=== PATIENT | female | born 1945 | race Caucasian/White ===

== ENCOUNTER 2019-11-09 15:46 | Observation (INO) | payer BC ==
[~2019-11-09] VITALS: Ht 157.5 cm; Wt 70.1 kg
[2019-11-09 16:30] VITALS: BP 213/109
[2019-11-09 16:34] LABS: BASO % 1 % (0-3); EOS # 0.1 x10^3/uL (0.0-0.7); EOS % 1 % (0-3); HEMATOCRIT 40.9 % (36.0-47.0); HEMOGLOBIN 13.7 g/dL (12.0-15.5); LYMPH # 1.7 x10^3/uL (1.0-4.8); LYMPH % 22 % (24-48); MEAN CORPUSCULAR HEMOGLOBIN 31 pg (25-35); MEAN CORPUSCULAR HGB CONC 33 g/dL (31-37); MEAN CORPUSCULAR VOLUME 94 fL (79-100); MONO # 0.7 x10^3/uL (0.0-1.1); MONO % 9 % (0-9); NEUT # 5.3 x10^3uL (1.8-7.7); NEUT % 68 % (31-73); PLATELET COUNT 345 x10^3/uL (140-400); RED BLOOD COUNT 4.36 x10^6/uL (3.50-5.40); WHITE BLOOD COUNT 7.8 x10^3/uL (4.0-11.0)
[2019-11-09 16:50] LABS: CALCIUM 9.1 mg/dL (8.5-10.1); CREATININE 0.6 mg/dL (0.6-1.0); GFR 98.3; POTASSIUM 3.9 mmol/L (3.5-5.1); TOTAL BILIRUBIN 0.2 mg/dL (0.2-1.0); TOTAL PROTEIN 7.9 g/dL (6.4-8.2)
[2019-11-09] MEDS ORDERED: amLODIPine BESYLATE 5 MG TABLET PO ONE (17:00)
--- NOTE | 2019-11-09 17:22 | EKG ---
[address] [address] Test Date: 2019-11-09 Test Time: 16:06:57 Pat Name: SHELLEY AVINA Department: Room: 122 A Gender: F Pile Driver Operator: : [id number] Requested By: KRISTAL FARFAN Order Number: [id number] Reading MD: Chris Jewell MD Measurements Intervals [place] Rate: 67 P: 47 MD: 148 QRS: 53 QRSD: 84 T: 56 QT: 380 QTc: 404 Interpretive Statements SINUS RHYTHM baseline artifact Electronically Signed On 11-11-2019 9:53:11 STUNT PERSON by Chris Jewell MD
[2019-11-09 17:48] VITALS: BP 147/81
[2019-11-09] MEDS ORDERED: OMEP20CA16 PO (18:20)
[2019-11-09] MEDS ORDERED: ZOLP5TAB PO (18:20)
[2019-11-09] MEDS ORDERED: CALC250T PO (18:20)
[2019-11-09] MEDS ORDERED: ERGO2000 PO (18:20)
[2019-11-09] MEDS ORDERED: CYAN100072 PO (18:20)
[2019-11-09] MEDS ORDERED: GARL10002 PO (18:20)
[2019-11-09] MEDS ORDERED: TRAM50TA PO (18:20)
[2019-11-09] MEDS ORDERED: TOLT2TAB4 PO (18:20)
[2019-11-09] MEDS ORDERED: B CO1TAB10 PO (18:20)
[2019-11-09] MEDS ORDERED: ALEN70TA6 PO (18:20)
[2019-11-09] MEDS ORDERED: LEVO50TA PO (18:20)
[2019-11-09] MEDS ORDERED: OMEG100021 PO (18:20)
--- NOTE | 2019-11-09 18:29 | RAD ---
PA and lateral chest HISTORY: Chest pain PA and lateral views were taken of the chest. Lungs are free of infiltrates. Heart is normal in size. There is no pleural effusion. IMPRESSION: 1. No acute chest disease. Electronically signed by: Natalio Payne MD (11/09/2019 6:27 PM) [id number]
[2019-11-09] MEDS ORDERED: traMADol 50 MG TABLET PO PRN (18:30)
[2019-11-09] MEDS ORDERED: ZOLPIDEM 5 MG TABLET. PO PRN (18:30)
[2019-11-09] MEDS: OMEGA-3 FATTY ACIDS/FISH OIL 1,000 MG CAPSULE. PO SCH (22:41)
[2019-11-09] MEDS: CALCIUM CARBONATE 500 MG TABLET PO SCH (22:42)
[2019-11-09] MEDS: OXYBUTYNIN CHLORIDE 5 MG TABLET PO SCH (22:42)
[2019-11-09 23:31] VITALS: BP 137/77
[2019-11-10 00:41] LABS: CLARITY,URINE CLOUDY; COLOR,URINE STRAW
[2019-11-10 00:42] LABS: BACTERIA,URINE MANY /HPF (0-FEW); BILIRUBIN,URINE NEG (NEG); GLUCOSE,URINE NEG (NEG); NITRITE,URINE NEG (NEG); SQUAMOUS EPITHELIAL CELL,UR OCC /LPF; UROBILINOGEN,URINE 0.2 mg/dL (0.2 mg/dL); WBC,URINE TNTC /HPF (0-4)
[2019-11-10] MEDS: LEVOTHYROXINE 50 MCG TABLET PO SCH (05:35)
[2019-11-10 05:46] VITALS: BP 134/83
[2019-11-10] MEDS ORDERED: PANTOPRAZOLE 40 MG TABLET. PO PRN (07:30)
[2019-11-10] MEDS ORDERED: MAALOX:LIDO:APAP 6:2:1 ORAL SUSPENSION 180 ML BOTTLE. PO PRN (07:45)
[2019-11-10] MEDS: OMEGA-3 FATTY ACIDS/FISH OIL 1,000 MG CAPSULE. PO SCH ×2 (08:17→21:48)
[2019-11-10] MEDS: LACTOBACILLUS RHAMNOSUS GG 1 CAPSULE. PO SCH ×2 (08:17→21:48)
[2019-11-10] MEDS: OXYBUTYNIN CHLORIDE 5 MG TABLET PO SCH ×3 (08:17→21:48)
[2019-11-10] MEDS: CYANOCOBALAMIN (VITAMIN B-12) 1,000 MCG TABLET. PO SCH (08:17)
[2019-11-10] MEDS: VITAMIN B COMPLEX CAPSULE. PO SCH (08:17)
[2019-11-10] MEDS: CALCIUM CARBONATE 500 MG TABLET PO SCH ×2 (08:18→21:48)
[2019-11-10] MEDS ORDERED: NON FORMULARY ITEM (Garlic 1,000 MG) PO SCH (09:00)
[2019-11-10 11:04] VITALS: BP 101/63
[2019-11-10] MEDS: IBUPROFEN 600 MG TABLET. PO PRN ×2 (14:10→23:05)
[2019-11-10 16:01] VITALS: BP 127/81
[2019-11-10] MEDS: ACETAMINOPHEN 500 MG TABLET PO PRN ×2 (16:56→23:06)
[2019-11-10 19:26] VITALS: BP 117/76
[2019-11-10 22:09] VITALS: BP 122/78
--- NOTE | 2019-11-11 00:06 | PN ---
DATE: SUBJECTIVE: The patient initially admitted with chest pain, but found to have a pyelonephritis. She had greater than 40 white blood cells per high powered field. She had been treated as an outpatient with oral antibiotics, apparently not very successful. All cardiac enzymes were negative. She is receiving 2 different antibiotics presently, Rocephin and Levaquin, and for coverage of the UTI that was not covered by her oral antibiotics. Otherwise, the patient is still fairly weak. Blood pressure 101/60, respiratory rate 20, pulse 70. Presently afebrile. The patient's blood pressure initially on admission was 213/110. As noted, she was having some chest discomfort; with addition of Norvasc, it came down. IMPRESSION: Pyelonephritis, chest pain, hypertensive urgency. Continue to monitor, IV antibiotic therapy, and hopefully improved and ready for discharge. KRISTAL FARFAN MD DR: SHO/brenda JOB#: [id number] / [id number]
[2019-11-11 05:17] VITALS: BP 143/80
[2019-11-11] MEDS: ACETAMINOPHEN 500 MG TABLET PO PRN (05:57)
[2019-11-11] MEDS: LEVOTHYROXINE 50 MCG TABLET PO SCH (06:00)
[2019-11-11 07:43] LABS: BASO % 1 % (0-3); EOS # 0.2 x10^3/uL (0.0-0.7); EOS % 4 % (0-3); HEMATOCRIT 42.8 % (36.0-47.0); HEMOGLOBIN 14.1 g/dL (12.0-15.5); LYMPH % 37 % (24-48); MEAN CORPUSCULAR HEMOGLOBIN 31 pg (25-35); MEAN CORPUSCULAR HGB CONC 33 g/dL (31-37); MEAN CORPUSCULAR VOLUME 94 fL (79-100); MONO # 0.7 x10^3/uL (0.0-1.1); MONO % 12 % (0-9); NEUT # 2.6 x10^3uL (1.8-7.7); NEUT % 47 % (31-73); PLATELET COUNT 330 x10^3/uL (140-400); RED BLOOD COUNT 4.56 x10^6/uL (3.50-5.40); RED CELL DISTRIBUTION WIDTH 13.4 % (11.5-14.5); WHITE BLOOD COUNT 5.6 x10^3/uL (4.0-11.0)
[2019-11-11 07:52] LABS: ALBUMIN 3.4 g/dL (3.4-5.0); ALBUMIN/GLOBULIN RATIO 0.9 (1.0-1.7); CALCIUM 8.9 mg/dL (8.5-10.1); CREATININE 0.7 mg/dL (0.6-1.0); GFR 82.3; POTASSIUM 3.7 mmol/L (3.5-5.1); TOTAL BILIRUBIN 0.3 mg/dL (0.2-1.0); TOTAL PROTEIN 7.1 g/dL (6.4-8.2)
[2019-11-11] MEDS: OXYBUTYNIN CHLORIDE 5 MG TABLET PO SCH (08:10)
[2019-11-11] MEDS: OMEGA-3 FATTY ACIDS/FISH OIL 1,000 MG CAPSULE. PO SCH (08:11)
[2019-11-11] MEDS: LACTOBACILLUS RHAMNOSUS GG 1 CAPSULE. PO SCH (08:11)
[2019-11-11] MEDS: CALCIUM CARBONATE 500 MG TABLET PO SCH (09:00)
[2019-11-11] MEDS: CYANOCOBALAMIN (VITAMIN B-12) 1,000 MCG TABLET. PO SCH (09:00)
[2019-11-11] MEDS: VITAMIN B COMPLEX CAPSULE. PO SCH (09:00)
--- NOTE | 2019-11-11 10:22 | CONS ---
DATE OF CONSULTATION: 11/11/2019 REASON FOR CONSULTATION: Chest pain. HISTORY OF PRESENT ILLNESS: The patient is a pleasant 74-year-old woman with past medical history as noted below, presents to the hospital in the setting of some chest discomfort. Apparently 2 days prior to admission, she had some chest pressure and upon arrival to the primary care physician's office, she was noted to have an abnormal EKG and she was subsequently admitted to the hospital for further evaluation and treatment. At baseline, the patient denies any exertional dyspnea, orthopnea, PND or lower extremity edema. She has a remote history of colon cancer, and otherwise has been doing fairly well. Upon arrival to the ER, she was noted to have significantly elevated blood pressures and she was also noted to have significant pyelonephritis. She was admitted for further evaluation and treatment. Thus far, three cardiac enzymes have been unremarkable. She reports a workup through [facility] prior to her colon cancer therapy where she had normal cardiac evaluation. She denies any other acute issues. PAST MEDICAL HISTORY: 1. Colon cancer, status post removal. 2. Hypertension, labile, currently not on any therapy. 3. Hypothyroidism. 4. Recurrent UTIs over the last 6 months. SOCIAL HISTORY: The patient denies any alcohol, tobacco or illicit drug use. ALLERGIES: No known drug allergies. CURRENT CARDIOVASCULAR MEDICATIONS: None. REVIEW OF SYSTEMS: Negative unless otherwise mentioned above in HPI. PHYSICAL EXAMINATION: VITAL SIGNS: Afebrile, 76, 20, 143/80, 96% on room air. GENERAL: She is alert and oriented, no acute distress. HEAD AND NECK: Unremarkable. CARDIAC: Regular rhythm without murmurs, rubs or gallops. LUNGS: Clear to auscultation bilaterally. ABDOMEN: Soft, nontender, nondistended. EXTREMITIES: No clubbing, cyanosis or edema. NEUROLOGIC: No focal deficits. MUSCULOSKELETAL: No trauma. NEUROLOGIC: No focal deficits. DIAGNOSTIC STUDIES: Hemoglobin, platelets, creatinine are within normal limits. Cardiac enzymes are negative x 3. EKG is unremarkable. Chest x-ray is unremarkable. ECHO AT [facility] reviewed from 2019 - [place]. IMPRESSION: 1. Chest pain, likely secondary to hypertension. 2. Underlying infection. RECOMMENDATIONS: 1. Her EKG, cardiac enzymes are unremarkable. Her chest pain is resolved since blood pressure has been controlled. 2. I recommended that she continue home blood pressure monitoring and follow up with Dr. Fontaine regarding initiation of any antihypertensive therapy. 3. She was previously on Losartan/HCTZ for BP, restart as needed. thanks Thank you for this consultation. Please call with further questions. NOELLE KEENE MD DR: CLEM/brenda JOB#: [id number] / [id number] KOLBY
[2019-11-11 10:44] VITALS: BP 151/83
[2019-11-11] MEDS ORDERED: LEVO500T59 PO (11:17)
[2019-11-11] MEDS ORDERED: AMLO10TA4 PO (11:19)
--- NOTE | 2019-11-14 15:52 | DS ---
DATE OF DISCHARGE: 11/11/2019 HOSPITAL COURSE: A 74-year-old female who initially came in with chest pain, was admitted for rule out GA protocol, but also was noting significant pain in her suprapubic area and the left flank area. The patient was admitted and found to have a significant urinary tract infection with too numerous to count white blood cells and actually had been attempted to be treated as an outpatient, but was unsuccessful along with her chest pain. The patient was admitted for rule out GA. The patient's rule out GA was negative for abnormal cardiac enzymes and the patient in turn made excellent progress. She was also seen in consultation with Dr. Jewell, cafeteria counter attendant, who also evaluated her and discharged her accordingly and she will be followed up as an outpatient. IMPRESSION: Pyelonephritis, urinary tract infection, unknown organism, nonresponsive initially to outpatient therapy. The patient's blood pressure was also essential hypertension and that was brought under control as well. See MRAD. The patient otherwise will be discharged home. Follow up on her urine test as well as her blood pressure and make further evaluation on her. She will be on a heart healthy diet. She will be followed up with her cafeteria counter attendant as well and make further adjustments according to that as well. KRISTAL FARFAN MD DR: SHO/brenda JOB#: [id number] / [id number]
[2019-11-16] MEDS ORDERED: ALENDRONATE SODIUM 35 MG TABLET PO SCH (09:00)
[2019-11-16] MEDS ORDERED: CHOLECALCIFEROL (VITAMIN D3) 50,000 UNIT CAPSULE PO SCH (09:00)
== END 2019-11-11 13:11 | disposition home or self-care (01) ==
LOC: INTOOBSV 15:46 → 1 SOUTH 15:46
PROVIDERS: ADMIT Family Medicine; ATTEND Family Medicine
DX: I16.0 Hypertensive urgency (principal); N12 Tubulo-interstitial nephritis, not specified as acute or chronic; N39.0 Urinary tract infection, site not specified; R07.89 Other chest pain; R31.9 Hematuria, unspecified; R30.0 Dysuria; R39.15 Urgency of urination; R35.0 Frequency of micturition; R65.10 Systemic inflammatory response syndrome (SIRS) of non-infectious origin without acute organ dysfunction; I10 Essential (primary) hypertension; E03.9 Hypothyroidism, unspecified; Z85.038 Personal history of other malignant neoplasm of large intestine; Z79.899 Other long term (current) drug therapy; Z87.440 Personal history of urinary (tract) infections
CPT/HCPCS: 36415; 71046; 80053; 81001; 84484; 85025; 85379; 87086; 93005; 96365; 96366; 96367; G0378; G0379; J0696; J1956